=== PATIENT | female | born 1985 ===

== ENCOUNTER 2021-09-15 11:25 | Emergency (ER) | payer SELFPAY ==
[2021-09-15 12:08] VITALS: BP 101/68
[2021-09-15] MEDS ORDERED: RABIES IMMUNE GLOBULIN P/F 300 UNIT/ML INJ 5 ML IM SCH (13:23)
--- NOTE | 2021-09-15 14:14 | Emergency Department Report ---
ED Animal Bite HPI - General Chief Complaint: Animal Bite Stated Complaint: DOG BITE Time Seen by Provider: 09/15/21 13:11 Source: patient Mode of arrival: Ambulatory Limitations: Language Barrier (Lithuanian-speaking only, synchro assembler line used an synchro assembler #[id number] assisted) - History of Present Illness Initial Comments: 36-year-old female presents to the emergency department for evaluation of she states that she was seen at clinic this a.m. where she received a tetanus shot and prescriptions for antibiotics. She was referred here for rabies vaccination. 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 Patient is requesting rabies series. MD Complaint: animal bite -: Sudden, days(s) (1) Right: Leg Animal: dog Animal Control Notified: No Description: household pet Mechanism: bite Severity scale (0 -10): 1 Context: unprovoked Associated Symptoms: erythema. denies: discharge from wound, bleeding, fever, chills, rash, headache, diaphoresis, shortness of breath Treatments Prior to Arrival: other (Tdap and antibiotic) - Related Data Patient Tetanus UTD: Yes Home Medications Medication Instructions Recorded Confirmed Last Taken No Known Home Medications [No 09/15/21 09/15/21 Unknown Reported Home Medications] Allergies Allergy/AdvReac Type Severity Reaction Status Date / Time No Known Allergies Allergy Verified 09/15/21 12:05 ED Review of Systems ROS: Stated complaint: DOG BITE Other details as noted in HPI Comment: All other systems reviewed and negative Constitutional: denies: chills, fever Respiratory: denies: shortness of breath, SOB with exertion, SOB at rest Cardiovascular: denies: chest pain, palpitations Gastrointestinal: denies: abdominal pain, nausea, vomiting Skin: other (Small bite sally right lower leg) ED Past Medical Hx - Past Medical History Previous Medical History?: No - Surgical History Past Surgical History?: No - Social History Smoking Status: Never Smoker Substance Use Type: None - Medications Home Medications: Home Medications Medication Instructions Recorded Confirmed Last Taken Type No Known Home Medications [No 09/15/21 09/15/21 Unknown History Reported Home Medications] ED Physical Exam - General Limitations: No Limitations General appearance: alert, in no apparent distress - Head Head exam: Present: atraumatic, normocephalic - Eye Eye exam: Present: normal appearance. Absent: conjunctival injection - Neck Neck exam: Present: normal inspection. Absent: tenderness, lymphadenopathy - Respiratory Respiratory exam: Present: normal lung sounds bilaterally. Absent: respiratory distress, wheezes, rales, rhonchi, stridor, chest wall tenderness - Cardiovascular Cardiovascular Exam: Present: bradycardia - GI/Abdominal GI/Abdominal exam: Present: soft. Absent: distended - Extremities Exam Extremities exam: Absent: normal inspection - Expanded Lower Extremity Exam Right Lower Leg exam: Absent: normal inspection (Small bite sally with less than 1 cm erythema noted.) - Back Exam Back exam: Present: normal inspection - Neurological Exam Neurological exam: Present: alert, oriented X3, normal gait - Psychiatric Psychiatric exam: Present: normal affect, normal mood - Skin Skin exam: Present: warm, dry, intact, normal color ED Course Vital Signs 09/15/21 12:07 Temperature 99.0 F Pulse Rate 59 L Respiratory 18 Rate Blood Pressure 101/68 [Right] O2 Sat by Pulse 100 Oximetry Critical care attestation.: If time is entered above; I have spent that time in minutes in the direct care of this critically ill patient, excluding procedure time. ED Disposition Clinical Impression: Dog bite Qualifiers: Encounter type: initial encounter Qualified Code(s): W54.0XXA - Bitten by dog, initial encounter Disposition: HOME / SELF CARE / HOMELESS Is pt being admited?: No Does the pt Need Aspirin: No Condition: Stable Instructions: Animal Bite, Adult, [id number], VIS, Rabies - CDC (06/23/2019), Rabies Additional Instructions: You will need your next rabies shot in 3 days (5), then day 7 (09/22), then day 14 (09/29). Follow-up with your primary care provider or the health department for the rest of your rabies vaccine series. Return to the emergency department for any concerning symptoms. Referrals: PRIMARY CAREMD [Primary Care Provider] - 3-5 Days Time of Disposition: 14:17 Print Language: ENGLISH Medical Decision Making - [facility] 36-year-old female presents to the emergency department for evaluation of she states that she was seen at clinic this a.m. where she received a tetanus shot and prescriptions for antibiotics. She was referred here for rabies vaccination. 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 Patient is requesting rabies series. Patient requesting rabies series, so she was treated with first rabies vaccine along with the rabies immunoglobulin. She was advised to continue antibiotics as prescribed from clinic and and have the rest of rabies series on day 3, 7, a nd 14. She was advised to follow-up with her primary care provider or health department for the rest of the rabies series. She verbalized understanding of and agreement with plan of care.
[2021-09-15] MEDS ORDERED: RABIES VACCINE, HUMAN DIPLOID/PF 2.5 UNIT/ML VIAL IM ONE (14:23)
== END 2021-09-15 15:07 | disposition home or self-care (01) ==
LOC: ED 11:25
DX: S81.831A Puncture wound without foreign body, right lower leg, initial encounter (principal); W54.0XXA Bitten by dog, initial encounter; Y93.89 Activity, other specified; Y92.89 Other specified places as the place of occurrence of the external cause; Y99.8 Other external cause status
CPT/HCPCS: 90375; 90471; 90675; 96372; 99282